=== PATIENT | female | born 1965 | race African-American/Black ===

== ENCOUNTER 2024-10-01 15:05 | Inpatient (IN) | payer MEDICARE, OTHER ==
[~2024-10-01] VITALS: Ht 160 cm; Wt 88.5 kg
[2024-10-01 16:06] LABS: PLATELET COUNT (AUTO) 356 K/uL (179-408); RED BLOOD CELL COUNT(AUTO) 3.82 MIL/uL (3.63-4.92); RED CELL DISTRIBUTION WIDTH 16.9 % (12.3-17.7); WHITE BLOOD COUNT (AUTO) 5.9 K/uL (3.8-11.8)
[2024-10-01 16:14] LABS: CREATININE 0.4 mg/dL (0.6-1.3); SODIUM SERUM 148 mmol/L (136-145); UREA NITROGEN, BLOOD 9 mg/dL (7-18)
[2024-10-01 16:28] LABS: ASPARTATE AMINOTRANSFERASE 52 U/L (15-37); TOTAL PROTEIN, SERUM 7.1 g/dL (6.4-8.2)
[2024-10-01 16:29] LABS: ETHANOL < 3 MG/DL (0-10)
[2024-10-01] MEDS ORDERED: POTASSIUM BICARBONATE/CIT AC 25 MEQ TABLET.EFF ONE (17:01)
[2024-10-01] MEDS: POTASSIUM BICARBONATE/CIT AC 25 MEQ TABLET.EFF PO ONE (17:05)
[2024-10-01] MEDS ORDERED: ACETAMINOPHEN 500 MG TABLET ONE (17:44)
[2024-10-01] MEDS: ACETAMINOPHEN 500 MG TABLET PO ONE (17:46)
[2024-10-01 18:35] LABS: *BILIRUBIN,URIN NEGATIVE (NEGATIVE); *BLOOD, URINE NEGATIVE (NEGATIVE); *CLARITY,URINE CLEAR (CLEAR); *COLOR,URINE YELLOW (YELLOW); *KETONES,URINE NEGATIVE (NEGATIVE); *PROTEIN,URINE NEGATIVE (NEGATIVE); *UROBILINOGEN,URINE 0.2 E.U./dl (NORMAL); LEUKOCYTE ESTERASE ,URINE NEGATIVE (NEGATIVE); NITRITE, URINE NEGATIVE (NEGATIVE); UGLUCOSE NEGATIVE (NEGATIVE)
[2024-10-01 18:49] LABS: *AMPHETAMINE, URINE NEGATIVE (NEGATIVE); *BARBITURATE, URINE NEGATIVE (NEGATIVE); *BENZODIAZEPINE, URINE NEGATIVE (NEGATIVE); *CANNABINOID, URINE NEGATIVE (NEGATIVE); *COCCAINE, URINE NEGATIVE (NEGATIVE); *OPIATE, URINE NEGATIVE (NEGATIVE); *PHENCYCLIDINE SCREEN,URINE NEGATIVE (NEGATIVE); FENTANYL, URINE NEGATIVE (NEGATIVE)
[2024-10-01] MEDS ORDERED: ZOLPIDEM 5 MG TABLET PO PRN ×2 (21:15)
[2024-10-01] MEDS ORDERED: QUETIAPINE FUMARATE 25 MG TABLET PO PRN (21:15)
[2024-10-01] MEDS: BLOOD SUGAR DIAGNOSTIC 1 EACH STRIP VI ONE (21:15)
[2024-10-01] MEDS ORDERED: MAGNESIUM HYDROXIDE 30 ML LIQUID UDC PO PRN (21:15)
[2024-10-02] MEDS: ACETAMINOPHEN 325 MG TABLET PO PRN (02:44)
[2024-10-02] MEDS ORDERED: OLAN5TAB3 PO (04:33)
[2024-10-02] MEDS ORDERED: OLAN10TA3 PO (04:34)
[2024-10-02] MEDS ORDERED: TEMAZEPAM 7.5 MG CAPSULE PO PRN (11:45)
[2024-10-02] MEDS: OXCARBAZEPINE 150 MG TABLET PO SCH (13:25)
[2024-10-02] MEDS: OLANZAPINE ZYDIS 5 MG TAB.RAPDIS PO SCH (13:25)
[2024-10-02 16:54] VITALS: BP 145/75; TEMP 98; O2SAT 98
[2024-10-02 20:15] VITALS: BP 159/86; TEMP 98.1; O2SAT 100
[2024-10-03 08:59] VITALS: BP 153/85; TEMP 98; O2SAT 98
[2024-10-03 11:53] LABS: PLATELET COUNT (AUTO) 372 K/uL (179-408); RED BLOOD CELL COUNT(AUTO) 3.85 MIL/uL (3.63-4.92); RED CELL DISTRIBUTION WIDTH 17.2 % (12.3-17.7); WHITE BLOOD COUNT (AUTO) 3.6 K/uL (3.8-11.8)
[2024-10-03 12:19] LABS: ASPARTATE AMINOTRANSFERASE 43 U/L (15-37); CREATININE 0.4 mg/dL (0.6-1.3); GLUCOSE FASTING 77 mg/dL (70-115); SODIUM SERUM 141 mmol/L (136-145); TOTAL PROTEIN, SERUM 6.5 g/dL (6.4-8.2); UREA NITROGEN, BLOOD 4 mg/dL (7-18)
[2024-10-03 16:34] VITALS: BP 144/79; TEMP 98; O2SAT 98
[2024-10-03 19:56] VITALS: BP 97/64; TEMP 97.6; O2SAT 99
[2024-10-04 07:43] VITALS: BP 122/53; O2SAT 100
[2024-10-04] MEDS ORDERED: LOPERAMIDE HCL 2 MG CAPSULE PO PRN (10:45)
[2024-10-04] MEDS: NYSTATIN POWDER 15 GM BOTTLE TOP SCH (12:30)
[2024-10-04] MEDS: OXCARBAZEPINE 150 MG TABLET PO SCH (14:51)
[2024-10-04] MEDS: OLANZAPINE ZYDIS 5 MG TAB.RAPDIS PO SCH (20:12)
[2024-10-05] MEDS: OLANZAPINE ZYDIS 5 MG TAB.RAPDIS PO SCH (08:55)
[2024-10-05 19:46] VITALS: BP 123/65; TEMP 97.6; O2SAT 100
[2024-10-05] MEDS: NYSTATIN OINTMENT 15 GM TUBE TOP SCH (20:26)
[2024-10-06 20:00] VITALS: BP 120/69; TEMP 97.4; O2SAT 97
[2024-10-06] MEDS: OXCARBAZEPINE 150 MG TABLET PO SCH (21:42)
[2024-10-07] MEDS: OLANZAPINE ZYDIS 5 MG TAB.RAPDIS PO SCH (09:08)
[2024-10-07] MEDS: LORAZEPAM 1 MG TABLET PO ONE (13:33)
[2024-10-07 20:00] VITALS: BP 163/87; TEMP 97.5; O2SAT 100
[2024-10-08] MEDS: MAG HYDROX/AL HYDROX/SIMETH 30 ML LIQUID UDC PO PRN (00:11)
[2024-10-08] MEDS: ONDANSETRON ODT 4 MG TAB.RAPDIS SL PRN (00:11)
[2024-10-09] MEDS ORDERED: OXCARBAZEPINE 150 MG TABLET PO SCH (14:00)
[2024-10-09] MEDS: OLANZAPINE ZYDIS 5 MG TAB.RAPDIS PO SCH (14:27)
[2024-10-09] MEDS: OXCARBAZEPINE 300 MG TABLET PO SCH (14:27)
[2024-10-09] MEDS: TEMAZEPAM 7.5 MG CAPSULE PO SCH (20:47)
[2024-10-10 10:19] LABS: PLATELET COUNT (AUTO) 348 K/uL (179-408); RED BLOOD CELL COUNT(AUTO) 4.09 MIL/uL (3.63-4.92); RED CELL DISTRIBUTION WIDTH 16.9 % (12.3-17.7); WHITE BLOOD COUNT (AUTO) 6.3 K/uL (3.8-11.8)
[2024-10-10 10:30] LABS: ASPARTATE AMINOTRANSFERASE 22.0 U/L (15-37); CREATININE 0.8 mg/dL (0.6-1.3); SODIUM SERUM 140.0 mmol/L (136-145); TOTAL PROTEIN, SERUM 7.4 g/dL (6.4-8.2); UREA NITROGEN, BLOOD 12.0 mg/dL (7-18)
[2024-10-10 19:56] VITALS: BP 137/84; TEMP 98; O2SAT 100
[2024-10-10] MEDS: TEMAZEPAM 15 MG CAPSULE PO SCH (20:22)
[2024-10-10] MEDS ORDERED: TEMAZEPAM 7.5 MG CAPSULE PO SCH (21:00)
[2024-10-10 21:15] VITALS: BP 117/76; TEMP 98; O2SAT 98
[2024-10-11 08:33] VITALS: BP 115/83; TEMP 97; O2SAT 100
[2024-10-11 15:44] VITALS: BP 99/61; TEMP 98.3; O2SAT 100
[2024-10-11 19:42] VITALS: BP 105/63; TEMP 98; O2SAT 95
[2024-10-12 07:52] VITALS: BP 115/75; TEMP 98; O2SAT 98
[2024-10-12 15:17] VITALS: BP 113/71; TEMP 98; O2SAT 96
== END 2024-10-13 13:30 | DRG 885 ==
LOC: ER 15:05 → GPS 20:24
PROVIDERS: ADMIT Psychiatry & Neurology Psychiatry; ATTEND Internal Medicine
DX: F29 Unspecified psychosis not due to a substance or known physiological condition (principal); Z59.02 Unsheltered homelessness; E44.0 Moderate protein-calorie malnutrition; E87.6 Hypokalemia; F39 Unspecified mood [affective] disorder; F20.9 Schizophrenia, unspecified; Z68.34 Body mass index [BMI] 34.0-34.9, adult; E66.9 Obesity, unspecified; Z87.891 Personal history of nicotine dependence; L30.4 Erythema intertrigo; R60.0 Localized edema; F41.9 Anxiety disorder, unspecified; R74.01 Elevation of levels of liver transaminase levels; R23.1 Pallor
CPT/HCPCS: 36415; 83735; 84100; 84443; 85025; 86803; A9150; G0480; Q0162